=== PATIENT | female | born 1985 | race Caucasian/White ===

== ENCOUNTER 2021-05-02 15:02 | Emergency (ER) | payer OTHER, SELFPAY ==
--- NOTE | ~2021-05-02 | US_ITS ---
EXAMINATION: US OB <=14 wk fetus w TV DATE: 05/02/2021 17:08 INDICATION: Vaginal bleeding TECHNIQUE: Real-time transabdominal and transvaginal obstetric ultrasound. FINDINGS: No prior studies for comparison. The uterus measures 10 x 6.8 x 5.1 cm. Endometrium is 1 cm. There is trace fluid in the endometrium. No gestational sac, yolk sac or pole identified. There is a small uterine fibroid posteriorly m easuring 2.2 cm maximum dimension. The ovaries are within normal limits without focal significant mas s. No adnexal masses or fluid collections. Right ovary measures 3.4 x 1.7 x 2 cm. Left ovary measures 3.6 x 1.9 x 2 cm. There are follicular changes in both ovaries. IMPRESSION: 1. No intrauterine is identified. Trace fluid in the endometrium. If there is a positive pr egnancy test, considerations include failed , ectopic in variable early intrauteri ne . Recommend follow-up with repeat ultrasound and serial quantitative beta hCG levels as c linically indicated. Reviewed, dictated and finalized at location A. STRY AIDE IMPRESSION: 1. No intrauterine is identified. Trace fluid in the endometrium. If there is a positive test, considerations include failed , ec topic in variable early intrauterine . Recommend follow-up w ith repeat ultrasound and serial quantitative beta hCG levels as clinically ind icated.
[2021-05-02 15:17] VITALS: BP 136/82; PULSE 69; RESP 18; TEMP 36.3; O2SAT 100
[2021-05-02 17:22] LABS: Basophils Percent Auto 0.3 % (0.2-1.2); Eosinophils Absolute Auto 0.1 K/mm3 (0-0.3); Eosinophils Percent Auto 1.1 % (0-4.4); Hematocrit 40.4 % (37.0-47.0); Hemoglobin 13.1 g/dL (12.0-15.0); Immature Granulocyte Absolute 0.04 K/mm3 (0.00-0.031); Immature Granulocyte Percent A 0.3 % (0-0.5); Lymphocytes Absolute Auto 2.36 K/mm3 (0.9-3.2); Lymphocytes Percent Auto 18.4 % (18.3-44.2); Mean Corpuscular HGB Conc 32.4 g/dl (32-36); Mean Corpuscular Hemoglobin 29.5 pg (26-34); Mean Platelet Volume 9.9 fl (7.4-10.4); Monocytes Absolute Auto 0.6 K/mm3 (0.1-0.6); Monocytes Percent Auto 4.7 % (2.6-8.5); Neutrophils Absolute Auto 9.7 K/mm3 (1.3-6.7); Neutrophils Percent Auto 75.2 % (45.5-73.1); Platelet Count Result 326 k/mm3 (150-375); Red Blood Count 4.44 M/mm3 (4.2-5.4); Red Cell Distribution Width 13.6 % (11.5-14.5); White Blood Count 12.9 K/mm3 (4.5-10.0)
[2021-05-02 17:38] LABS: Alanine Aminotransferase 18 U/L (4-35); Albumin Level 4.3 g/dL (3.5-5.1); Alkaline Phosphatase 116 U/L (38-126); Anion Gap 7 mmol/L (8-16); Aspartate Amino Transferase 20 U/L (14-36); Bilirubin,Total 0.4 mg/dL (0.2-1.3); Blood Urea Nitrogen 18 mg/dL (7-17); Calcium 9.4 mg/dL (8.4-10.2); Carbon Dioxide 28 mmol/L (22-30); Chloride 102 mmol/L (98-107); Estimated CRCL calculation 91 ml/min; Estimated Glomerular Filt Rate > 60; Glucose 96 mg/dL (65-110); Potassium 3.8 mmol/L (3.4-5.0); Sodium 137 mmol/L (137-145)
[2021-05-02 17:55] LABS: Beta HCG Quantitative 34.34 mIU/ML
--- NOTE | 2021-05-02 20:08 | ED.GENADULT ---
HPI - General Adult General Chief complaint: Vaginal Bleeding Stated complaint: , bleeding. Time Seen by Provider: 05/02/21 15:53 Source: patient Mode of arrival: ambulatory Limitations: no limitations History of Present Illness HPI narrative: Patient presents with chief complaint of vaginal bleeding that began today after having a positive home test. Patient reports that her previous child was conceived via IVF and she was told that she cannot conceive naturally. Patient reports that she has lost over 70 pounds, change her diet and her lifestyle and noticed that she had not had a menstrual period after February 10. She has not yet had an appointment with her [employer] Dr. Gibbs to confirm intrauterine . She reports some mild cramping, denies passage of large blood clots, fevers, chills, or other symptoms. Related Data Allergies Allergy/AdvReac Type Severity Reaction Status Date / Time No Known Allergies Allergy Unverified 12/14/16 14:35 Review of Systems Review of Systems: CONSTITUTIONAL: Denies fever, chills, or sweats. EYES: Denies visual changes, redness, or discharge. ENT: Denies rhinorrhea, congestion, sore throat, or otalgia. CARDIOVASCULAR: Denies chest pain, palpitations, or edema. RESPIRATORY: Denies cough or dyspnea. GASTROINTESTINAL: Denies abdominal pain, nausea, vomiting, or diarrhea. GENITOURINARY: Reports vaginal bleeding denies dysuria or hematuria. SKIN: Denies rash or itching. MUSCULOSKELETAL: Denies back pain, joint pain, or myalgia. NEUROLOGIC: Denies headache, numbness, dizziness, or weakness. PSYCHIATRIC: Denies anxiety or depression. PMFSH Social History Social History Smoking status: Never smoker Alcohol intake: never Exam Narrative: GENERAL: Well-appearing, well-nourished, and in no acute distress. HEAD: Normocephalic, atraumatic. EYES: PERRLA and EOMI. CHEST: Clear to auscultation. No respiratory distress. No wheezes rales or rhonchi HEART: Regular rate and rhythm. No murmur heard. Normal peripheral pulses. ABDOMEN: Soft, nontender, nondistended, normal active bowel sounds. EXTREMITIES: Normal range of motion. No edema. SKIN: Warm, dry, no rash. NEURO: No focal deficits. Alert and oriented x3. PSYCH: Normal mood and affect. Course Vital Signs Vital signs: Vital Signs Temperature 97.4 F L 05/02/21 15:17 Pulse Rate 69 05/02/21 15:17 Respiratory Rate 18 05/02/21 15:17 Blood Pressure 136/82 05/02/21 15:17 Pulse Oximetry 100 05/02/21 15:17 Temperature 97.4 F L 05/02/21 15:17 Pulse Rate 69 05/02/21 15:17 Respiratory Rate 18 05/02/21 15:17 Blood Pressure 136/82 05/02/21 15:17 Pulse Oximetry 100 05/02/21 15:17 Medical Decision Making MDM Narrative Medical decision making narrative: Patient refuses pelvic exam. She states she would rather have it performed by her [employer]. Discussed with patient that her beta hCG is under 50 and the ultrasound is without findings of a viable . Patient is O+. Discussed with Dr. Gibbs patient's presentation, lab work, imaging. Patient is instructed to follow-up in their office for further evaluation to make sure the miscarriage is completed appropriately. Patient has been instructed to return to emergency department if she has any worsening or emergent symptoms. Vital Signs Vital Signs: Vital Signs Temperature 97.4 F L 05/02/21 15:17 Pulse Rate 69 05/02/21 15:17 Respiratory Rate 18 05/02/21 15:17 Blood Pressure 136/82 05/02/21 15:17 Pulse Oximetry 100 05/02/21 15:17 Temperature 97.4 F L 05/02/21 15:17 Pulse Rate 69 05/02/21 15:17 Respiratory Rate 18 05/02/21 15:17 Blood Pressure 136/82 05/02/21 15:17 Pulse Oximetry 100 05/02/21 15:17 Lab Data Result diagrams: 05/02/21 17:08 05/02/21 17:08 Labs: Lab Results 05/02/21 05/02/21 05/02/21 Range/Units 17:08 17:08 17:11 WBC 12.9 H (4.5-10.0) K/mm3 RBC
== END 2021-05-02 18:57 | disposition home or self-care (01) ==
PROVIDERS: Physician Assistant; Emergency Provider Emergency Medicine; PCP Internal Medicine
DX: O03.4 Incomplete spontaneous abortion without complication (principal)
CPT/HCPCS: 36415; 76801; 76817; 80053; 84702; 85025; 85461; 99284

== ENCOUNTER 2022-07-21 11:11 | Observation (INO) | payer OTHER, SELFPAY ==
--- NOTE | ~2022-07-21 | US_ITS ---
EXAMINATION: US OB limited w BPP DATE: 07/21/2022 13:42 INDICATION: Spotting during third trimester TECHNIQUE: Real-time pelvic ultrasound was performed. The interpreting radiologist was not present fo r the study. COMPARISON: None. FINDINGS: There is a single living fetus in transverse lie. The placenta is posterior. heart rate is 150 beats per minute (bpm). The amniotic fluid index is 24.8 cm which is mildly elevated (normal range: 8 .6 cm to 24.2 cm) Biophysical profile performed by the technologist: breathing (30 sec sustained breathing in 30 minutes): 2 out of 2 movement (3 gross body movements in 30 minutes): 2 out of 2 tone (one episode of flctprk-ijrlwtvrc-yfdvfch limb movement): 2 out of 2 Amniotic fluid pocket (2 cm): 2 out of 2 Total score: 8 out of 8 IMPRESSION: 1. Single living fetus in transverse lie. 2. Biophysical profile 8 out of 8. 3. Amniotic fluid index slightly above normal range. Reviewed, dictated and finalized at location B. PLANER
[2022-07-21 11:44] VITALS: BMI 49.8
--- NOTE | 2022-07-21 11:45 | OBADM ---
This patient, Melissa Johnston, admitted to the OB room OB Post 116 for observation. Patient/family oriented to hospital policies and general routines including ID bracelet, bed and alarms, visiting hours, pain management, procedures, bathroom and other care routines, personal items, smoking policy, room service/diet, and visiting hours. Patient/Family are encouraged to report perceived risks to care and to ask questions if they do not understand what they are told or what they should do.
[2022-07-21 11:46] VITALS: BP 126/77; PULSE 74
[2022-07-21 12:01] VITALS: BP 122/75; PULSE 68
[2022-07-21 12:16] VITALS: BP 118/71; PULSE 68
[2022-07-21 12:31] VITALS: BP 120/79; PULSE 69
[2022-07-21 12:46] VITALS: BP 118/72; PULSE 71
--- NOTE | 2022-07-25 06:21 | PM.OBTRLD ---
OB - Triage/Final Diagnosis Visit Information Date of evaluation: 07/21/22 Reason for evaluation: other (bleeding) Comments/Additional reasons for admission: I have assessed the risk for this patient, Melissa Johnston, and determined that she would benefit from observation care.
== END 2022-07-21 14:50 | disposition home or self-care (01) ==
PROVIDERS: Admitting Provider Obstetrics & Gynecology; PCP Internal Medicine; Visit Provider Obstetrics & Gynecology
DX: O26.853 Spotting complicating pregnancy, third trimester (principal); Z3A.32 32 weeks gestation of pregnancy
CPT/HCPCS: 76815; 76819; G0378; G0379

== ENCOUNTER 2022-08-29 10:47 | Outpatient (RCR) | payer OTHER, SELFPAY ==
[2022-08-29 12:30] VITALS: BP 120/74
== END 2022-09-29 15:12 | disposition home or self-care (01) ==
LOC: ANHOBOP 10:47
PROVIDERS: PCP Internal Medicine; Visit Provider Obstetrics & Gynecology
DX: O99.891 Other specified diseases and conditions complicating pregnancy (principal); M25.559 Pain in unspecified hip; Z3A.38 38 weeks gestation of pregnancy
CPT/HCPCS: 59025

== ENCOUNTER 2022-09-04 09:49 | Outpatient (CLI) | payer OTHER, SELFPAY ==
[2022-09-04 11:24] LABS: Hematocrit 31.4 % (37.0-47.0); Hemoglobin 9.9 g/dL (12.0-15.0); Mean Corpuscular HGB Conc 31.5 g/dl (32-36); Mean Corpuscular Hemoglobin 28.9 pg (26-34); Mean Corpuscular Volume 91.5 fl (80-100); Mean Platelet Volume 10.3 fl (7.4-10.4); Platelet Count Result 279 k/mm3 (150-375); Red Blood Count 3.43 M/mm3 (4.2-5.4); Red Cell Distribution Width 15.2 % (11.5-14.5); White Blood Count 10.6 K/mm3 (4.5-10.0)
[2022-09-04 13:48] LABS: Rapid Plasma Reagin Non-Reactive (NonReactive)
== END 2022-09-04 09:50 | disposition home or self-care (01) ==
LOC: ANHLAB 09:52
PROVIDERS: PCP Internal Medicine; Visit Provider Obstetrics & Gynecology
DX: Z01.812 Encounter for preprocedural laboratory examination (principal)
CPT/HCPCS: 36415; 85027; 86592; 86850; 86900; 86901

== ENCOUNTER 2022-09-05 05:34 | Inpatient (IN) | payer OTHER, SELFPAY ==
[2022-09-05] VITALS (55 sets, daily range): BP systolic 86–148; BP diastolic 61–91; PULSE 52–149; RESP 14–18; TEMP 36.4–36.9; O2SAT 86–100; BMI 51.5
--- NOTE | 2022-09-05 06:08 | LDADM ---
This patient, Melissa Johnston, was admitted to Labor/Delivery/Recovery 120 on 09/05/22 at 05:34. Plans for labor, pain management and were discussed with patient. Patient/family oriented to hospital policies and general routines including ID bracelet, bed and alarms, visiting hours, pain management, procedures, bathroom and other care routines, personal items, smoking policy, room service/diet and guest tray routines, security routines, and visiting hours. Patient/Family are encouraged to report perceived risks to care and to ask questions if they do not understand what they are told or what they should do. See OBIX for further documentation.
[2022-09-05] MEDS: LACTATED RINGERS 1,000 ML 125 ML IV CONT (06:28)
--- NOTE | 2022-09-05 07:16 | PM.IMHP ---
H&P: HPI History of Present Illness Date/Time: 09/05/22 07:16 Chief Complaint: repeat CS and salpingectomy Narrative: Melissa is a at 39.1 for repeat CS with salpingectomy. PREGNAcy complicated by breech, LGA, maternal obesity, AMA, polyhydramnios, and a 3.6cm right JESSICA fibroidd. She wants sterilization also. Review of Systems Review of Systems: All systems reviewed & are unremarkable except as noted in HPI and below [facility] Family History Family History (Updated 08/16/22 @ 12:41 by Mabel Ortega RN) Mother History of kidney cancer Grandparent Hypertension Diabetes mellitus Social History Social History Smoking status: Never smoker Alcohol intake: never Substance use: never Lack of Transportation: No Lack of Food: Never True Current Housing: I Have Housing Concerned About Future Housing: No Difficulty Paying Gas/Electric Bills: No Difficulty Paying for Meds: No Currently Unemployed: No Education: Associate Degree Difficulty w/ Childcare or Family Care: No Spiritual care concerns: No Meds Home Medications and Allergies Home Medications Medication Instructions Recorded Confirmed Type aspirin 81 mg tablet 81 mg PO DAILY 08/16/22 09/05/22 History docusate sodium 50 mg capsule 50 mg PO DAILY 08/16/22 09/05/22 History (Stool Softener) prenat.vits,sterling,epk-aify-fnjrz 1 tablet PO HS 08/16/22 09/05/22 History Allergies Allergy/AdvReac Type Severity Reaction Status Date / Time No Known Allergies Allergy Unverified 12/14/16 14:35 Vital Signs Vital Signs - 24 hr 09/05/22 05:52 09/05/22 06:06 Pulse Rate 85 Blood Pressure 148/85 H Oxygen Delivery Room Air Exam Const: General: no acute distress Resp: Effort & Inspection: normal respiratory effort Auscultation: clear to auscultation bilaterally Cardio: Rate: regular rate Rhythm: regular rhythm GI: GI Palp: Yes Soft to palpation Extrem: General: normal to inspection Assessment and Plan Assessment and plan (1) History of delivery: Code(s): Z98.891 - History of uterine scar from previous surgery Status: Acute (2) Breech presentation: Code(s): O32.1XX0 - Maternal care for breech presentation, not applicable or unspecified Status: Acute Plan prior CS, breech, consented for Repeat CS desires sterilization, will do bilateral salpingectomy.
--- NOTE | 2022-09-05 07:23 | WPDHPUPDATE1 ---
History and Physical Update Update Date/Time: 09/05/22 07:23 History and Physical has been reviewed, including an updated exam of the patient. There are NO changes in the patient's condition. Risks, benefits, and alternatives have been discussed and questions answered. Patient agrees to proceed with procedure.
[2022-09-05] MEDS: ceFAZolin 3 GM/D5W 100 ML 100 ML IVPB (07:27)
--- NOTE | 2022-09-05 07:52 | P.PNAN_ITS ---
Anes - Initial Pre Proc Eval Procedure: Operation Date: 09/05/22 07:30 Proposed Procedures p Section with Tubal Ligarion - Melissa Rosas MD Date/Time: 09/05/22 07:52 Surgeon: Melissa Rosas MD Pre Op Diagnosis: C/S Patient Data Age: 37 Gender: F Height: 1.63 m Weight: 136 kg Last Vital Signs Pulse 85 09/05/22 05:52 BP 148/85 H 09/05/22 05:52 O2 Del Method Room Air 09/05/22 06:06 Allergies Allergy/AdvReac Type Severity Reaction Status Date / Time No Known Allergies Allergy Unverified 12/14/16 14:35 Home Medications Medication Instructions Recorded Confirmed Type aspirin 81 mg tablet 81 mg PO DAILY 08/16/22 09/05/22 History docusate sodium 50 mg capsule 50 mg PO DAILY 08/16/22 09/05/22 History (Stool Softener) prenat.vits,sterling,mgj-lhzc-cungu 1 tablet PO HS 08/16/22 09/05/22 History Patient hx anesthesia problems: none Family hx anesthesia problems: none Results Review: All pre-operative results and documents have been reviewed as part of the pre- operative evaluation. [facility] Past Medical History Medical History (Updated 09/05/22 @ 07:53 by James Thakur MD) Breech presentation Morbid obesity with BMI of 50.0-59.9, adult Surgical History Surgical History (Updated 09/05/22 @ 07:53 by James Thakur MD) History of delivery Family History Family History (Updated 08/16/22 @ 12:41 by Mabel Ortega RN) Mother History of kidney cancer Grandparent Hypertension Diabetes mellitus Social History Social History Smoking status: Never smoker Alcohol intake: never Substance use: never Lack of Transportation: No Lack of Food: Never True Current Housing: I Have Housing Concerned About Future Housing: No Difficulty Paying Gas/Electric Bills: No Difficulty Paying for Meds: No Currently Unemployed: No Education: Associate Degree Difficulty w/ Childcare or Family Care: No Spiritual care concerns: No Anes - Eval Final PreProcedure Day of Procedure 09/05/22 07:52 Patient weight: morbidly obese Heart: regular rate and rhythm Lungs: clear to auscultation and normal air movement Airway: Mallampati scale class II Neurological: alert and oriented Last oral intake: >/= 8 hours ASA classification: III Emergent: no Anesthetic plan: proceed Anesthesia type and monitoring: regional spinal Results Review: All pre-operative results and documents have been reviewed as part of the pre- operative evaluation. Informed Consent: The patient's anesthetic plan and its attendant risks and benefits were discussed with the patient/family/POA. Questions were solicited and answers pr ovided to the satisfaction of the patient/family/POA.
--- NOTE | 2022-09-05 08:51 | P.PCNOB_ITS ---
OB - Delivery Note Procedure Delivery date: 09/05/22 Procedure: Procedures Operation Date: 09/05/22 07:30 <No data on this case meets the specified criteria> Repeat low transverse section with bilateral salpingectomy Events: Breech Presentation, Macrosomia, Polyhydramnios and Previous Delivery Route of delivery: Specimen: Yes (placenta) Quantitative Blood Loss (ml): 290 Anesthesia type: Spinal Disposition: Floor Complications: none Narrative: The patient was taken to the OR and received spinal anesthesia. She was placed in dorsal supine position with left lateral tilt. SCDs and evans were placed. She was prepped and draped in the normal sterile fashion. A Pfannensteil skin incision was made and carried through to the underlying layer of fascia. The fascia was incised in the midline and then extended laterally using Gomez scissors. The muscles were in the midline and the peritoneum was entered bluntly. The peritoneal incision was extended inferiorly and superiorly with care to avoid the bladder. The bladder blade was then inserted, the vesicouterine peritoneum was grasped, incised with Metzenbaum scissors, and a bladder flap created. The bladder blade was reinserted. A low transverse uterine incision was made with a scalpel and extended bluntly. AROM was performed and fluid was noted to be copious and clear. The baby was delivered in breech presentation without difficulty. The baby's oropharynx was suctioned. After 30 seconds, the cord was clamped and cut and the infant was handed off. Cord blood was obtained and the placenta was then removed manually. The uterus was exteriorized. A moist lap sponge was used to curette the endometrium. The uterine incision was then closed with two layers of 0-Vicryl in a running, locking fashion. Good hemostasis was noted. I then turned attention to the tubes. Using the Ligasure, the right tube was removed by sequentially clamping, cauterizing, and cutting the tube free from the cornua and the broad ligament. Similarly, the left tube was removed. The posterior cul de sac was irrigated with normal saline and cleared of all clot and debris. The uterus was returned to the abdomen. Both lateral gutters were then irrigated. The rectus muscles were inspected and found to be hemostatic. The fascia was reapproximated using 0-Vicryl in running fashion. The subcutaneous t issue was irrigated with normal saline and made hemostatic with Bovie electrocautery. The subcutaneous tissue space was closed with a running suture of 2-0 plain gut. The skin was then closed with reabsorbable farhat. Steri strips and a bandage were applied. The uterus was evacuated. The patient tolerated the procedure very well. All counts were correct. She was taken to the recovery room in good condition. [place] Baby Date of : 09/05/22 Time of : 08:01 Weeks of gestation at delivery: 39 Infant gender: Female Weight (pounds): 8 Weight (ounces): 11 presentation: breech Placenta delivery description: Manual Removal Cord Vessel Description: 3 Vessels, Nuchal Cord and Delayed Cord Clamping score one minute: 9 score five minutes: 9
--- NOTE | 2022-09-05 12:36 | OBPPTRN ---
1112 Patient transferred to post room #282 via stretcher. Support person present. Oriented to unit, room, information board, rooming in, admission packet and security measures. Patient verbalizes understanding.
[2022-09-05] MEDS: diphenhydrAMINE HCl INJ 50 MG/ML VIAL 25 MG IV PUSH (12:48)
[2022-09-05] MEDS: DEXTROSE 5%/0.45% SOD CHL 1,000 ML 125 ML IV CONT (14:36)
[2022-09-06 00:35] VITALS: BP 135/77; PULSE 73; RESP 16; TEMP 36.3
[2022-09-06] MEDS: IBUPROFEN 600 MG TABLET PO ×3 (06:02→21:24)
[2022-09-06] MEDS: HYDROcodone/acetaminophen (*CRX) 5-325 MG TABLET 1 TAB PO ×4 (06:02→21:25)
[2022-09-06 07:23] LABS: Basophils Percent Auto 0.1 % (0.2-1.2); Eosinophils Absolute Auto 0.3 K/mm3 (0-0.3); Hematocrit 29.6 % (37.0-47.0); Hemoglobin 9.4 g/dL (12.0-15.0); Immature Granulocyte Absolute 0.06 K/mm3 (0.00-0.031); Immature Granulocyte Percent A 0.4 % (0-0.5); Lymphocytes Absolute Auto 1.38 K/mm3 (0.9-3.2); Lymphocytes Percent Auto 10.3 % (18.3-44.2); Mean Corpuscular HGB Conc 31.8 g/dl (32-36); Mean Corpuscular Hemoglobin 29.3 pg (26-34); Mean Corpuscular Volume 92.2 fl (80-100); Mean Platelet Volume 10.4 fl (7.4-10.4); Monocytes Absolute Auto 0.7 K/mm3 (0.1-0.6); Monocytes Percent Auto 5.5 % (2.6-8.5); Neutrophils Percent Auto 81.7 % (45.5-73.1); Platelet Count Result 260 k/mm3 (150-375); Red Blood Count 3.21 M/mm3 (4.2-5.4); Red Cell Distribution Width 15.1 % (11.5-14.5); White Blood Count 13.5 K/mm3 (4.5-10.0)
[2022-09-06 07:25] VITALS: BP 124/72; PULSE 71; RESP 12; TEMP 36.7; O2SAT 99
--- NOTE | 2022-09-06 07:43 | PM.OBPNVD ---
OB - PN: Subj Subjective Date/time seen: 09/06/22 07:43 Patient comments: no complaints and pain well controlled baby status: doing well and bottle feeding well [place] feeding status: exclusively bottle feeding Narrative: POD 1 from primary CS. Doing well. Normal lochia. Eating, ambulating, evans out. OB - PN: Obj Data Labs 09/06/22 06:45 Labs: Laboratory Results - last 24 hr 09/06/22 06:45 WBC 13.5 H RBC 3.21 L Hgb 9.4 L Hct 29.6 L MCV 92.2 MCH 29.3 MCHC 31.8 L RDW 15.1 H Plt Count 260 MPV 10.4 Immature Gran % (Auto) 0.4 Neut % (Auto) 81.7 H Lymph % (Auto) 10.3 L [place] % (Auto) 5.5 Eos % (Auto) 2.0 Baso % (Auto) 0.1 L Lymph # (Auto) 1.38 [place] # (Auto) 0.7 H Eos # (Auto) 0.3 Baso # (Auto) 0.0 Abs Immat Gran (auto) 0.06 H Absolute Neuts (auto) 11.0 H Absolute Nucleated RBC 0.0 Nucleated RBC % 0.0 OB - PN A/P Assessment and Plan (1) delivery delivered: Code(s): O82 - Encounter for delivery without indication Status: Acute Plan day: 1 Plan: routine care Comments: doing very well. possible DC home tomorrow per pt if continues to do well Time Spent With Patient Time: Total time spent is greater than 50% in coordination of care (as documented) at patient's floor/unit and/or counseling patient: Exam Narrative: NAD abdomen soft, appropriately tender, incision bandaged Extremities nontender with 1+ edema
--- NOTE | 2022-09-06 08:00 | PC.NURSE ---
PT introductions made and plan of care discussed per post op c section, pain management, bottle feeding, daily care activities. PT and fob both recipients of such instructions and no barriers to learning identified at this time. PT received such instructions per one to one discussion, mom baby care guide and demonstrations this shift. PT verbalized understanding of such care.
--- NOTE | 2022-09-06 09:49 | PC.NURSE ---
On 09/06/22, the student, Mary Cameron, provided care and completed [facility] documentation on this patient. I have reviewed the student's documentation and agree with the findings.
--- NOTE | 2022-09-06 10:24 | WPDANLDPN2 ---
Anes-Prog Note L&D Date/Time: 09/06/22 10:24 Comfortable throughout: section Neuraxial method: spinal Neuro status: Neuro function grossly intact. Cardiovascular status: normal Respiratory status: normal Airway patency: baseline Mental status: baseline Post-Op hydration status: normal Vital Signs: Last Vital Signs Temp 36.7 C 09/06/22 07:25 Pulse 71 09/06/22 07:25 Resp 12 09/06/22 07:25 BP 124/72 09/06/22 07:25 Pulse Ox 99 09/06/22 07:25 O2 Del Method Room Air 09/05/22 16:55 Pain score (VAS): 3/10 I/O: Intake & Output 09/05/22 09/06/22 09/06/22 23:59 07:59 15:59 Intake Total 3040 500 Output Total 750 2800 Balance 2290 -2300 Post-procedural complaints: none Patient feedback: Patient satisfied with anesthetic care.
--- NOTE | 2022-09-06 10:25 | WPDANLDNPN2 ---
Anes-Prog Note L&D-Neuraxial Date/Time: 09/06/22 10:25 Neuraxial medications: intrathecal PF morphine Opiod-related complaints: none Patient feedback: Patient satisfied with post-operative pain management.
[2022-09-06 10:30] VITALS: PULSE 71; RESP 12; O2SAT 99
[2022-09-06] MEDS: POLYSACCHARIDE IRON COMPLEX 150 MG CAPSULE PO ×2 (10:33→15:31)
[2022-09-06] MEDS: DOCUSATE SODIUM 100 MG CAPSULE PO ×2 (10:33→15:30)
[2022-09-06] MEDS: MULTIVIT/MIN/PREN/FOL AC/IRON TABLET 1 TAB PO (10:33)
[2022-09-06] MEDS: SIMETHICONE 80 MG TAB.CHEW PO ×2 (10:33→15:31)
[2022-09-06 20:10] VITALS: BP 138/84; PULSE 72; RESP 18; TEMP 37
[2022-09-07] MEDS: IBUPROFEN 600 MG TABLET PO ×2 (05:57→14:41)
[2022-09-07] MEDS: HYDROcodone/acetaminophen (*CRX) 5-325 MG TABLET 1 TAB PO ×3 (05:59→14:42)
[2022-09-07 08:00] VITALS: BP 133/88; PULSE 82; RESP 18; TEMP 36.6; O2SAT 98
--- NOTE | 2022-09-07 08:00 | PC.NURSE ---
PT introductions made and plan of care discussed per post op c section, pain management, bottle feeding, daily care activities, pending discharge to home. PT and fob both recipients of such instructions and no barriers to learning identified at this time. PT received such instructions per one to one discussion, mom baby care guide and demonstrations this shift. PT verbalized understanding of such care.
--- NOTE | 2022-09-07 08:05 | PM.OBPNVD ---
OB - PN: Subj Subjective Date/time seen: 09/07/22 08:05 Patient comments: no complaints, pain well controlled, tolerating diet and flatus present baby status: doing well OB - PN: Obj Data Labs 09/06/22 06:45 OB - PN A/P Plan day: 2 Plan: routine care and discharge home (Follow up in 1 week) Time Spent With Patient Time: Total time spent is greater than 50% in coordination of care (as documented) at patient's floor/unit and/or counseling patient: Time with patient: less than 15 minutes Review of Systems Review of Systems: All systems reviewed & are unremarkable except as noted in HPI and below Exam Narrative: Fundus firm. Vaginal flow controlled. Incision dry and intact. Negative homans. No redness, warmth, or pain of lower ext. Const: General: comfortable Chest: Breast/axilla inspection: normal inspection of the breasts Resp: Effort & Inspection: normal respiratory effort Auscultation: clear to auscultation bilaterally Cardio: Rate: regular rate GI: GI Palp: Yes Soft to palpation Psych: Appearance: grossly normal Affect: normal affect Attitude: cooperative Thought content: Yes Normal thought content present Judgement: Good judgement present (Psych)
--- NOTE | 2022-09-07 08:14 | PM.OBDSVD ---
DS: Admitting Diagnosis Discharge Date 09/07/22 Admitting Diagnosis OB - DS: Summary OB Procedures : None OB Procedures Intrapartum: and Tubal ligation OB Procedures: : None Peripartum Data Procedures: Procedures Operation Date: 09/05/22 07:30 Actual Procedure Side Surgeon p Section with Tubal Ligarion Bilateral Melissa Rosas MD Time Spent with Patient Time attestation: Total time spent providing and/or coordinating discharge services: DS: Data Data Completed and Pending Completed studies during hospitalization: Pending at discharge 09/05/22 09:16 Surgical [PTH] Routine Discharge Plan Discharge Attending physician on discharge: Melissa Rosas Discharging Clinician: Tori Tejada Patient Disposition: Home, Self-Care Activity: pelvic rest Diet: as tolerated Patient Instructions: Antibiotic Form Stand Alone Forms: General Discharge Information Follow-up/Referrals: Melissa Rosas MD [Physician] - Discharge Medications: New hydrocodone-acetaminophen 5-300 mg tablet 1 tablet PO Q4-6H PRN (Reason: pain) Qty: 20 0RF Continued Stool Softener 50 mg Capsule 50 mg PO DAILY #2 Tablet 1 tablet PO HS Adult Low Dose Aspirin 81 mg Tablet 81 mg PO DAILY Date of admission: 09/05/22 05:34 Primary Care Provider: Geovanny,Heidi Admitting Provider: Melissa Rosas Attending physician on admission: Melissa Rosas Condition: Stable
[2022-09-07 08:30] VITALS: PULSE 82; RESP 18; O2SAT 98
[2022-09-07] MEDS: MULTIVIT/MIN/PREN/FOL AC/IRON TABLET 1 TAB PO (09:42)
[2022-09-07] MEDS: DOCUSATE SODIUM 100 MG CAPSULE PO (09:42)
[2022-09-07] MEDS: POLYSACCHARIDE IRON COMPLEX 150 MG CAPSULE PO (09:42)
[2022-09-07] MEDS: SIMETHICONE 80 MG TAB.CHEW PO ×2 (09:42→14:40)
--- NOTE | 2022-09-07 15:15 | PC.NURSE ---
PT discharged to home ambulatory accompanied by spouse and and walked to waiting car. Follow up appts confirmed.
[2022-09-08 11:23] VITALS: BP 129/73; PULSE 61; RESP 18; TEMP 36.6; O2SAT 97
--- NOTE | 2022-09-24 10:45 | PM.OBDSVD ---
DS: Admitting Diagnosis Discharge Date 09/07/22 Admitting Diagnosis DS: Discharge Diagnosis Discharge Diagnosis (1) delivery delivered: Code(s): O82 - Encounter for delivery without indication Status: Acute OB - DS: Summary OB Procedures : None OB Procedures Intrapartum: OB Procedures: : None Peripartum Data Procedures: Procedures Operation Date: 09/05/22 07:30 Actual Procedure Side Surgeon p Section with Tubal Ligarion Bilateral Melissa Rosas MD Time Spent with Patient Time attestation: Total time spent providing and/or coordinating discharge services: DS: Data Data Completed and Pending Completed studies during hospitalization: Pending at discharge 09/05/22 09:16 Surgical [PTH] Routine Discharge Plan Discharge Attending physician on discharge: Melissa Rosas Consulting providers: Lorrie Barone ; James Thakur Discharging Clinician: Tori Tejada Patient Disposition: Home, Self-Care Activity: pelvic rest Diet: as tolerated Discharge Instructions: Education: Mom and Baby Guide Given to: Mother Follow-Up: Call your delivering provider's office for an appointment to be seen in: 1 Week Mom and baby should come to the [facility] for the follow-up appointment. Appointment Date/Time: September 08, 2022 at 11:00 am What to expect at your follow-up visit: Blood Pressure Check Call [phone] if you are unable to keep your appointment time. BREAST CARE: * Wear a snug supportive bra. * For engorgement discomfort: Bottle Feeding: * May apply ice packs ABDOMINAL INCISION: (if applicable) * Allow incision to air dry * Do NOT use lotions for powders on your incision * When showering, allow soap and water to run over the incision, but do not wash incision PERINEAL CARE: * Until bleeding stops, use your giuseppe bottle after urinating * Change your pad frequently throughout the day * You may take sitz baths several times a day (fill your bathtub with warm water and soak for 20 minutes.) Do NOT bathe in the water * No tub baths until seen by your physician - You may shower ACTIVITY: * Rest as much as possible. * Do not exercise or lift anything heavier than your baby (such as laundry or other children.) * Avoid stairs or driving as much as possible. * Do not put anything into the vagina. No douching, tampons, or sexual activity until seen by physician. NOTIFY PHYSICIAN IF YOU HAVE ANY QUESTIONS OR IF ANY OF THE FOLLOWING SYMPTOMS OCCUR: * If your incision becomes red, swollen, or more painful than what you have experienced in the hospital. * If your vaginal bleeding becomes foul smelling. * If your vaginal bleeding becomes more heavy than a period or if your bleeding changes from pink to bright red. However, you may pass an occasional walnut-sized clot once or twice for the first week . * If you experience a sharp, shooting pain in you calves. * If you discover a hard, reddened area on your breast or if you experience flu-like symptoms. * If you have a fever of 100.4 or greater DIET: * Eat regular, well-balanced meals. * Drink plenty of fluids daily. If , drink to thirst. Patient Instructions: Antibiotic Form Stand Alone Forms: General Discharge Information Follow-up/Referrals: Melissa Rosas MD [Physician] - Discharge Medications: New hydrocodone-acetaminophen 5-300 mg tablet 1 tablet PO Q4-6H PRN (Reason: pain) Qty: 20 0RF Continued Stool Softener 50 mg Capsule 50 mg PO DAILY prenat.vits,sterling,gtx-fjzs-lhztd Tablet 1 tablet PO HS aspirin 81 mg Tablet 81 mg PO DAILY Date of admission: 09/05/22 05:34 Primary Care Provider: Geovanny,Heidi Admitting Provider: Melissa Rosas Attending physician on admission: Tori Tejada Condition: Stable
== END 2022-09-07 15:15 | disposition home or self-care (01) | DRG 785 ==
LOC: ANHLDR 05:42 → ANHOB2 09-06 13:59 → ANHLDR 09-08 09:19 → ANHOB2 09-08 09:19
PROVIDERS: Admitting Provider Obstetrics & Gynecology; PCP Internal Medicine; Visit Provider Advanced Practice Midwife
PROC: 10D00Z1 Extraction of Products of Conception, Low, Open Approach (ICD-10-PCS; CPT 59514; principal; 2022-09-05 07:30)
DX: O34.211 Maternal care for low transverse scar from previous cesarean delivery (principal); Z37.0 Single live birth; Z3A.39 39 weeks gestation of pregnancy; O40.3XX0 Polyhydramnios, third trimester, not applicable or unspecified; O32.1XX0 Maternal care for breech presentation, not applicable or unspecified; O36.63X0 Maternal care for excessive fetal growth, third trimester, not applicable or unspecified; Z30.2 Encounter for sterilization
CPT/HCPCS: 36415; 85025; 85027; 86592; 86850; 86900; 86901; 88302; A9270; J0131; J0690; J1200; J2274; J2405; J2590; J7120